=== PATIENT | female | born 1990 | race Caucasian/White ===

== ENCOUNTER 2017-11-23 20:20 | Emergency (ER) | payer OTHER, MEDICAID ==
[~2017-11-23] VITALS: Ht 167.6 cm; Wt 81.7 kg
[~2017-11-23 20:20] MED LIST: BACTRIM DS TAB1 EACH PO; CLEOCIN HCL150 MG PO; CLEOCIN HCL300 MG PO; DOXYCYCLINE 10100 MG PO; EMVERM100 MG PO; ERYTHROMYCIN250 MG PO; FIORICET 50-321 EACH PO; FLEXERIL PO; IBUPROFEN 800800 MG PO; KEFLEX500 MG PO; MACROBID 100 M100 M1 PO; MIRENA; NAPROSYN500 MG PO; NOHOMEMEDICATIONS; NORCO 5-325 TA1 EACH PO; NUVARING VAGIN1 EACH VG; NYSTATIN100000 UNI PO; OSELB75 PO; PROMETHAZINE-D120 ML PO; ROBAXIN500 MG; TOBRADEX ST EYE5 ML OP; TRAMADOL 50 MG50 MG PO; TRINATE TABLET1 TAB PO; ULTRAM 50MG TAB50 MG PO; ZPAK PO
[2017-11-23] MEDS ORDERED: TRAMADOL 50 MG50 MG PO (21:41)
[2017-11-23] MEDS ORDERED: ROBAXIN 750 MG750 M1 PO (21:41)
[2017-11-23] MEDS ORDERED: MEDROLDOSEPACK PO (21:41)
[2017-11-23 21:53] VITALS: BP 138/78
== END 2017-11-23 21:54 | disposition home or self-care (01) ==
LOC: M.ERS 20:20
DX: M54.12 Radiculopathy, cervical region (principal); F17.210 Nicotine dependence, cigarettes, uncomplicated; Z88.0 Allergy status to penicillin

== ENCOUNTER 2018-04-14 19:30 | Emergency (ER) | payer OTHER, MEDICAID ==
[~2018-04-14] VITALS: Ht 167.6 cm; Wt 79.4 kg
[~2018-04-14 19:30] MED LIST changes: +MEDROLDOSEPACK PO; +ROBAXIN 750 MG750 M1 PO
[2018-04-14 19:54] LABS: URINE BILIRUBIN NEGATIVE (Negative); URINE BLOOD TRACE (Negative); URINE CLARITY CLEAR; URINE COLOR YELLOW; URINE GLUCOSE-RANDOM NEGATIVE (Negative); URINE KETONES NEGATIVE (Negative); URINE NITRITE-REFLEX NEGATIVE (Negative); URINE PROTEIN NEGATIVE (Negative); URINE UROBILINOGEN 0.2 E.U./dl (0.2-1.0)
[2018-04-14 19:56] LABS: URINE LEUKOCYTES-REFLEX 2+ (Negative)
[2018-04-14 20:03] LABS: MUCUS 0-3 Light strn/LPF (None Seen); SQUAMOUS >10 Many /LPF (0-3)
[2018-04-14 20:05] LABS: BACTERIA-REFLEX 1-9 Few /HPF (None Seen); CASTS None Seen /LPF (None Seen); CRYSTALS None Seen /LPF (None Seen); URINE WBC-REFLEX 6-15 Few /HPF (0-5)
[2018-04-14 20:06] LABS: URINE RBC 0-2 Rare /HPF (0-2)
[2018-04-14 20:49] VITALS: BP 114/72
== END 2018-04-14 20:50 | disposition home or self-care (01) ==
LOC: M.ERS 19:30
PROVIDERS: Nurse Practitioner Family
DX: N76.0 Acute vaginitis (principal); F32.9 Major depressive disorder, single episode, unspecified; F17.210 Nicotine dependence, cigarettes, uncomplicated; Z88.0 Allergy status to penicillin

== ENCOUNTER 2018-07-25 10:19 | Emergency (ER) | payer OTHER, MEDICAID ==
[~2018-07-25] VITALS: Ht 170.2 cm; Wt 72.6 kg
[2018-07-25 10:40] LABS: URINE BILIRUBIN NEGATIVE (Negative); URINE BLOOD NEGATIVE (Negative); URINE CLARITY CLEAR; URINE COLOR YELLOW; URINE GLUCOSE-RANDOM NEGATIVE (Negative); URINE KETONES NEGATIVE (Negative); URINE LEUKOCYTES-REFLEX NEGATIVE (Negative); URINE NITRITE-REFLEX NEGATIVE (Negative); URINE PROTEIN NEGATIVE (Negative); URINE SPECIFIC GRAVITY 1.025 (1.005-1.030); URINE UROBILINOGEN 0.2 E.U./dl (0.2-1.0)
[2018-07-25 10:53] LABS: ABSOLUTE EOSINOPHILS 0.1 thou/uL (0.0-0.7); ABSOLUTE LYMPHOCYTES 1.6 thou/uL (0.8-5.3); ABSOLUTE MONOCYTES 0.4 thou/uL (0.0-1.2); ABSOLUTE NEUTROPHILS 5.7 thou/uL (1.6-8.1); BASOPHILS 0.4 %; EOSINOPHILS 1.4 %; HEMATOCRIT 39.1 % (37.0-47.0); HEMOGLOBIN 13.1 gm/dL (12.0-15.0); LYMPHOCYTES 20.1 %; MCH 31.7 pg (26.0-34.0); MCHC 33.5 g/dL (28.0-37.0); MCV 94.7 fL (80.0-100.0); MONOCYTES 5.5 %; MPV 8.3 fl. (7.2-11.1); NUCLEATED RBCS 0 /100WBC; PLATELET COUNT* 213 thou/uL (150-400); POLYS 72.6 %; RBC 4.13 mil/uL (4.20-5.00); RDW-CV 12.5 % (10.5-14.5); WBC 7.8 thou/uL (4.0-11.0)
[2018-07-25 10:56] LABS: CALCIUM 8.2 mg/dL (8.5-10.1); CREATININE 0.6 mg/dL (0.6-1.3); POTASSIUM 3.7 mmol/L (3.5-5.1)
[2018-07-25 13:10] VITALS: BP 116/69
== END 2018-07-25 13:11 | disposition home or self-care (01) ==
LOC: M.ERS 10:19
PROVIDERS: Nurse Practitioner Family
DX: O26.891 Other specified pregnancy related conditions, first trimester (principal); R10.32 Left lower quadrant pain; Z3A.01 Less than 8 weeks gestation of pregnancy; O99.341 Other mental disorders complicating pregnancy, first trimester; F32.9 Major depressive disorder, single episode, unspecified; F17.210 Nicotine dependence, cigarettes, uncomplicated; Z88.0 Allergy status to penicillin

== ENCOUNTER 2018-10-08 18:24 | Emergency (ER) | payer OTHER, MEDICAID ==
[~2018-10-08] VITALS: Ht 167.6 cm; Wt 97.1 kg
[2018-10-08] MEDS ORDERED: CLEOCIN HCL300 MG PO (19:07)
[2018-10-08 19:19] VITALS: BP 132/93
== END 2018-10-08 19:19 | disposition home or self-care (01) ==
LOC: M.ERS 18:24
DX: O26.892 Other specified pregnancy related conditions, second trimester (principal); O99.342 Other mental disorders complicating pregnancy, second trimester; F32.9 Major depressive disorder, single episode, unspecified; K08.89 Other specified disorders of teeth and supporting structures; Z3A.17 17 weeks gestation of pregnancy; F17.210 Nicotine dependence, cigarettes, uncomplicated; Z88.0 Allergy status to penicillin

== ENCOUNTER 2020-04-13 18:36 | Emergency (ER) | payer OTHER, MEDICAID ==
[~2020-04-13] VITALS: Ht 167.6 cm; Wt 99.8 kg
[2020-04-13 19:20] LABS: ABSOLUTE BASOPHILS 0.1 thou/uL (0.0-0.2); ABSOLUTE EOSINOPHILS 0.4 thou/uL (0.0-0.7); ABSOLUTE LYMPHOCYTES 2.8 thou/uL (0.8-5.3); ABSOLUTE MONOCYTES 0.6 thou/uL (0.0-1.2); BASOPHILS 0.9 %; EOSINOPHILS 3.7 %; HEMATOCRIT 40.5 % (37.0-47.0); HEMOGLOBIN 13.7 gm/dL (12.0-15.0); LYMPHOCYTES 28.3 %; MCH 30.2 pg (26.0-34.0); MCHC 33.8 g/dL (28.0-37.0); MCV 89.4 fL (80.0-100.0); MONOCYTES 5.9 %; MPV 8.2 fl. (7.2-11.1); NUCLEATED RBCS 0 /100WBC; PLATELET COUNT* 263 thou/uL (150-400); POLYS 61.2 %; RBC 4.53 mil/uL (4.20-5.00); RDW-CV 13.3 % (10.5-14.5); WBC 9.8 thou/uL (4.0-11.0)
[2020-04-13 19:27] LABS: CALCIUM 8.3 mg/dL (8.5-10.1); CREATININE 0.7 mg/dL (0.6-1.3); POTASSIUM 3.7 mmol/L (3.5-5.1)
[2020-04-13 19:32] LABS: ALBUMIN 3.4 g/dL (3.4-5.0); TOTAL BILIRUBIN 0.3 mg/dL (<0.1-1.0); TOTAL PROTEIN 7.1 g/dL (6.4-8.2)
[2020-04-13 20:41] VITALS: BP 127/74
== END 2020-04-13 20:41 | disposition home or self-care (01) ==
LOC: M.ERS 18:36
PROVIDERS: Nurse Practitioner Family
DX: O26.891 Other specified pregnancy related conditions, first trimester (principal); S80.01XA Contusion of right knee, initial encounter; M54.31 Sciatica, right side; R10.2 Pelvic and perineal pain; O99.331 Smoking (tobacco) complicating pregnancy, first trimester; Z3A.08 8 weeks gestation of pregnancy; Z88.0 Allergy status to penicillin; V89.2XXA Person injured in unspecified motor-vehicle accident, traffic, initial encounter; Y93.89 Activity, other specified; Y92.89 Other specified places as the place of occurrence of the external cause; Y99.8 Other external cause status

== ENCOUNTER 2020-05-03 12:00 | Emergency (ER) | payer OTHER, MEDICAID ==
[~2020-05-03] VITALS: Ht 167.6 cm; Wt 99.8 kg
[2020-05-03 12:32] LABS: ABSOLUTE BASOPHILS 0.1 thou/uL (0.0-0.2); ABSOLUTE EOSINOPHILS 0.4 thou/uL (0.0-0.7); ABSOLUTE LYMPHOCYTES 2.8 thou/uL (0.8-5.3); ABSOLUTE MONOCYTES 0.5 thou/uL (0.0-1.2); ABSOLUTE NEUTROPHILS 5.5 thou/uL (1.6-8.1); BASOPHILS 0.9 %; EOSINOPHILS 3.9 %; HEMATOCRIT 41.3 % (37.0-47.0); HEMOGLOBIN 13.9 gm/dL (12.0-15.0); LYMPHOCYTES 30.3 %; MCH 30.2 pg (26.0-34.0); MCHC 33.7 g/dL (28.0-37.0); MCV 89.5 fL (80.0-100.0); MONOCYTES 4.9 %; MPV 7.8 fl. (7.2-11.1); NUCLEATED RBCS 0 /100WBC; PLATELET COUNT* 312 thou/uL (150-400); RBC 4.62 mil/uL (4.20-5.00); RDW-CV 13.3 % (10.5-14.5); WBC 9.2 thou/uL (4.0-11.0)
[2020-05-03 12:37] LABS: CALCIUM 8.9 mg/dL (8.5-10.1); CREATININE 0.6 mg/dL (0.6-1.3)
[2020-05-03 12:42] LABS: ALBUMIN 3.7 g/dL (3.4-5.0); TOTAL BILIRUBIN 0.3 mg/dL (<0.1-1.0); TOTAL PROTEIN 7.7 g/dL (6.4-8.2)
[2020-05-03 13:04] LABS: URINE BILIRUBIN NEGATIVE (Negative); URINE BLOOD 3+ (Negative); URINE CLARITY CLEAR; URINE COLOR YELLOW; URINE GLUCOSE-RANDOM NEGATIVE (Negative); URINE KETONES NEGATIVE (Negative); URINE LEUKOCYTES-REFLEX NEGATIVE (Negative); URINE NITRITE-REFLEX NEGATIVE (Negative); URINE PROTEIN TRACE (Negative); URINE SPECIFIC GRAVITY >= 1.030 (1.005-1.030); URINE UROBILINOGEN 0.2 E.U./dl (0.2-1.0)
[2020-05-03 13:15] LABS: SQUAMOUS 4-10 Moderate /LPF (0-3); URINE RBC 3-10 Few /HPF (0-2); URINE WBC-REFLEX None Seen /HPF (0-5)
[2020-05-03 13:16] LABS: CASTS None Seen /LPF (None Seen); CRYSTALS None Seen /LPF (None Seen); MUCUS 4-6 Moderate strn/LPF (None Seen)
[2020-05-03 15:49] VITALS: BP 138/93
== END 2020-05-03 15:50 | disposition home or self-care (01) ==
LOC: M.ERS 12:00
PROVIDERS: Nurse Practitioner Family
DX: O20.0 Threatened abortion (principal); F32.9 Major depressive disorder, single episode, unspecified; F17.210 Nicotine dependence, cigarettes, uncomplicated; Z3A.01 Less than 8 weeks gestation of pregnancy; Z88.0 Allergy status to penicillin

== ENCOUNTER 2020-05-06 18:31 | Emergency (ER) | payer OTHER, MEDICAID ==
[~2020-05-06] VITALS: Ht 167.6 cm; Wt 99.8 kg
[2020-05-06 19:50] LABS: ABSOLUTE BASOPHILS 0.1 thou/uL (0.0-0.2); ABSOLUTE EOSINOPHILS 0.3 thou/uL (0.0-0.7); ABSOLUTE LYMPHOCYTES 2.8 thou/uL (0.8-5.3); ABSOLUTE MONOCYTES 0.4 thou/uL (0.0-1.2); ABSOLUTE NEUTROPHILS 7.7 thou/uL (1.6-8.1); BASOPHILS 1.1 %; EOSINOPHILS 2.8 %; HEMOGLOBIN 11.7 gm/dL (12.0-15.0); LYMPHOCYTES 24.9 %; MCH 29.6 pg (26.0-34.0); MCHC 33.3 g/dL (28.0-37.0); MCV 88.9 fL (80.0-100.0); MONOCYTES 3.9 %; MPV 7.8 fl. (7.2-11.1); NUCLEATED RBCS 0 /100WBC; PLATELET COUNT* 245 thou/uL (150-400); POLYS 67.3 %; RBC 3.94 mil/uL (4.20-5.00); RDW-CV 13.4 % (10.5-14.5); WBC 11.4 thou/uL (4.0-11.0)
[2020-05-06 19:59] LABS: CALCIUM 6.9 mg/dL (8.5-10.1); CREATININE 0.5 mg/dL (0.6-1.3)
[2020-05-06 20:00] LABS: POTASSIUM 2.9 mmol/L (3.5-5.1)
[2020-05-06 20:01] LABS: APTT 23.3 Seconds (25.0-31.3); PROTIME 10.1 Seconds (9.20-11.50)
[2020-05-06 20:04] LABS: ALBUMIN 3.1 g/dL (3.4-5.0); TOTAL BILIRUBIN 0.2 mg/dL (<0.1-1.0); TOTAL PROTEIN 6.1 g/dL (6.4-8.2)
[2020-05-06 20:17] VITALS: BP 136/70
--- NOTE | 2020-05-07 13:02 | EKG ---
[place] [address] ELECTROCARDIOGRAM REPORT Name: NAEEM QUINONES Room: [facility]#: [id number] Admission: 05/06/20 Attend Phys: Discharge: 05/06/20 Date of : 89 Date of Service: 05/06/201910 Report #: [id number] THIS REPORT FOR: //name// [facility] ED Test Date: 2020-05-06 Test Time: 19:11:34 Pat Name: NAEEM QUINONES Department: Room: Gender: [employer] Analyst: : 1990 Requested By: Josette Lemons Order Number: [id number] MD: Gilles Burnett Measurements Intervals [place] Rate: 94 P: 80 RI: 183 QRS: 46 QRSD: 81 T: 36 QT: 338 QTc: 423 Interpretive Statements Sinus rhythm Consider left atrial enlargement No previous ECG available for comparison Electronically Signed On 05-07-2020 13:01:56 CDT by Gilles Burnett [email or web address] <ELECTRONICALLY SIGNED> By: Gilles Burnett MD, [facility] 05/07/20 130 10 10 Gilles Burnett MD, FACC /EPI
== END 2020-05-06 20:13 | disposition short-term general hospital (02) ==
LOC: M.ERS 18:31
PROVIDERS: Physician Assistant
DX: O03.9 Complete or unspecified spontaneous abortion without complication (principal); F32.9 Major depressive disorder, single episode, unspecified; F17.210 Nicotine dependence, cigarettes, uncomplicated; Z88.0 Allergy status to penicillin